=== PATIENT | male | born 1965 | race Caucasian/White ===

== ENCOUNTER 2020-06-27 04:46 | Emergency (ER) | payer BC, OTHER ==
[2020-06-27] MEDS ORDERED: TETANUS & DIPHTHERIA TOX,ADULT 0.5 ML VIAL ONE (05:25)
--- NOTE | 2020-06-27 06:09 | ER ---
Nurse's Notes [facility] Name: Elfego Elliott Age: 54 yrs Sex: Male : 1965 Arrival Date: 06/27/2020 Time: 04:49 Bed 8 Private MD: Diagnosis: Fall due to bumping against object;Pain in left shoulder;Alcohol abuse with intoxication;Contusion of left elbow;Acute maxillary sinusitis;Acute ethmoidal sinusitis Presentation: 06/27 04:52 Chief complaint: EMS states: he was at home , alcohol on board, tripped and fell on his mg2 left side. he sustained pain on his left shoulder and abrasions on the left elbow. denies neck or head injury. Coronavirus screen: Client denies travel out of the [place] in the last 14 days. At this time, the client does not indicate any symptoms associated with coronavirus-19. Ebola Screen: No symptoms or risks identified at this time. Initial Sepsis Screen: Does the patient meet any 2 criteria? No. Patient's initial sepsis screen is negative. Does the patient have a suspected source of infection? No. Patient's initial sepsis screen is negative. Risk Assessment: Do you want to hurt yourself or someone else? Patient reports no desire to harm self or others. Onset of symptoms was June 27, 2020. 04:52 Method Of Arrival: EMS: [facility] [place] 04:[place] Acuity: IRAM 4 mg2 - Family history:: not pertinent. Screenin:00 Abuse screen: Denies threats or abuse. Nutritional screening: No deficits noted. jb4 Tuberculosis screening: No symptoms or risk factors identified. Fall Risk None identified. Assessment: 05:00 General: Appears in no apparent distress. uncomfortable, Behavior is calm, cooperative, jb4 appropriate for age. Pain: Complains of pain in left shoulder Pain does not radiate. Pain currently is 5 out of 10 on a pain scale. Neuro: Level of Consciousness is awake, alert, obeys commands, Oriented to person, place, time, situation. Cardiovascular: Patient's skin is warm and dry. Respiratory: Airway is patent Respiratory effort is even, unlabored, Respiratory pattern is regular, symmetrical. GI: No signs and/or symptoms were reported involving the gastrointestinal system. : No signs and/or symptoms were reported regarding the genitourinary system. EENT: No signs and/or symptoms were reported regarding the EENT system. Derm: Skin is intact, Skin is pink, warm \T\ dry. Musculoskeletal: Circulation, motion, and sensation intact. Range of motion: intact in all extremities. 05:54 Reassessment: Patient appears in no apparent distress at this time. Patient and/or jb4 family updated on plan of care and expected duration. Pain level reassessed. Patient is alert, oriented x 3, equal unlabored respirations, skin warm/dry/pink. PT to Radiology. 06:30 Reassessment: Patient appears in no apparent distress at this time. Patient and/or jb4 family updated on plan of care and expected duration. Pain level reassessed. Patient is alert, oriented x 3, equal unlabored respirations, skin warm/dry/pink. Pt verbalized understanding of d/c and follow up instructions. Denies questions or concerns. Shown to lobby to wait for ride home. Vital Signs: 06:10 BP 131 / 92; Pulse 101; Resp 16; Pulse Ox 96% on R/A; jb4 ED Course: 04:49 Patient arrived in ED. femi 04:49 Jorge Alberto Restrepo MD is Attending Physician. femi 05:00 Fabiano Marti, RN is Primary Nurse. jb4 05:00 Patient has correct armband on for positive identification. Bed in low position. Call jb4 light in reach. Side rails up X 1. Pulse ox on. NIBP on. 05:01 Triage completed. mg2 05:01 Arm band placed on. mg2 06:01 CT Head C Spine In Process Unspecified. EDMS 06:09 Abilio Shannon MD is Referral Physician. femi 06:30 No provider procedures requiring assistance completed. IV discontinued, intact, jb4 bleeding controlled, No redness/swelling at site. Pressure dressing applied. 06:40 Chest Pa And Lat (2 Views) XRAY In Process Unspecified. EDMS 06:41 Elbow Left 3 View XRAY In Process Unspecified. EDMS 06:42 Shoulder Left (2 View) XRAY In Process Unspecified. EDMS Administered Medications: 05:25 Drug: Tetanus-Diphtheria Toxoid Adult 0.5 ml {Washing Machine Mechanic: SeeOn. Exp: jb4 11/23/2022. Lot #: [id number]. } Route: IM; Site: right deltoid; 06:00 Follow up: Response: No adverse reaction jb4 05:25 Drug: Neosporin Ointment 1 application Route: Topical; Site: wound; jb4 Outcome: 06:09 Discharge ordered by . femi 06:30 Discharged to home ambulatory. jb4 06:30 Condition: stable 06:30 Discharge instructions given to patient, Instructed on discharge instructions, follow up and referral plans. Demonstrated understanding of instructions, follow-up care, medications, Prescriptions given X 2. 06:31 Patient left the ED. jb4 Signatures: Dispatcher [employer] EDMS Jorge Alberto Restrepo MD MD cha Bryson, James, RN RN jb4 Dejuan Harrison RN RN mg2
--- NOTE | 2020-06-27 06:10 | EDPHYS ---
Physician Documentation [facility] Name: Elfego Elliott Age: 54 yrs Sex: Male : 1965 Arrival Date: 06/27/2020 Time: 04:49 Bed 8 Private MD: EMY Physician Jorge Alberto Restrepo HPI: 06/27 04:54 This 54 yrs old Male presents to ER via Unassigned with complaints of fall at [facility] home to shoulder. 04:54 The patient or guardian complains of decreased range of motion, an injury. left [facility] shoulder. Context: The problem was sustained at home, resulted from a fall. Onset: The symptoms/episode began/occurred just prior to arrival. Modifying factors: the symptoms are alleviated by remaining still, The symptoms are aggravated by movement. Associated signs and symptoms: The patient has no apparent associated signs or symptoms. The patient or guardian reports chest pain that is located primarily in the anterior chest wall, left lateral anterior chest and left lateral posterior chest. 05:01 The pain does not radiate. Associated signs and symptoms: The patient has no apparent [facility] associated signs or symptoms. The chest pain is described as aching. Modifying factors: The symptoms are alleviated by remaining still, the symptoms are aggravated by activity, deep breath, twisting torso. Severity of pain: At its worst the pain was mild moderate in the emergency department the pain is unchanged. Severity of symptoms: At their worst the symptoms were mild, in the emergency department the symptoms are unchanged. - Family history:: not pertinent. ROS: 04:54 Constitutional: Negative for fever, chills, and weight loss, Eyes: Negative for injury, femi pain, redness, and discharge, ENT: Negative for injury, pain, and discharge, Neck: Negative for injury, pain, and swelling, Cardiovascular: Negative for chest pain, palpitations, and edema, Respiratory: Negative for shortness of breath, cough, wheezing, and pleuritic chest pain, Abdomen/GI: Negative for abdominal pain, nausea, vomiting, diarrhea, and constipation, Back: Negative for injury and pain, : Negative for injury, bleeding, discharge, and swelling, Skin: Negative for injury, rash, and discoloration, Neuro: Negative for headache, weakness, numbness, tingling, and seizure, Psych: Negative for depression, anxiety, suicide ideation, homicidal ideation, and hallucinations, Allergy/Immunology: Negative for hives, rash, and allergies, Endocrine: Negative for neck swelling, polydipsia, polyuria, polyphagia, and marked weight changes. 04:54 MS/extremity: Positive for decreased range of motion, pain, swelling, tenderness, of the anterior aspect of left shoulder and posterior aspect of left shoulder. Exam: 04:54 Constitutional: This is a well developed, well nourished patient who is awake, alert, femi and in no acute distress. Head/Face: Normocephalic, atraumatic. Eyes: Pupils equal round and reactive to light, extra-ocular motions intact. Lids and lashes normal. Conjunctiva and sclera are non-icteric and not injected. Cornea within normal limits. Periorbital areas with no swelling, redness, or edema. ENT: Nares patent. No nasal discharge, no septal abnormalities noted. Tympanic membranes are normal and external auditory canals are clear. Oropharynx with no redness, swelling, or masses, exudates, or evidence of obstruction, uvula midline. Mucous membranes moist. Neck: Trachea midline, no thyromegaly or masses palpated, and no cervical lymphadenopathy. Supple, full range of motion without nuchal rigidity, or vertebral point tenderness. No Meningismus. Chest/axilla: Normal chest wall appearance and motion. Nontender with no deformity. No lesions are appreciated. Cardiovascular: Regular rate and rhythm with a normal S1 and S2. No gallops, murmurs, or rubs. Normal PMI, no JVD. No pulse deficits. Respiratory: Lungs have equal breath sounds bilaterally, clear to auscultation and percussion. No rales, rhonchi or wheezes noted. No increased work of breathing, no retractions or nasal flaring. Abdomen/GI: Soft, non-tender, with normal bowel sounds. No distension or tympany. No guarding or rebound. No evidence of tenderness throughout. Back: No spinal tenderness. No costovertebral tenderness. Full range of motion. Male : Normal genitalia with no discharge or lesions. Skin: Warm, dry with normal turgor. Normal color with no rashes, no lesions, and no evidence of cellulitis. Neuro: Awake and alert, GCS 15, oriented to person, place, time, and situation. Cranial nerves II-XII grossly intact. Motor strength 5/5 in all extremities. Sensory grossly intact. Cerebellar exam normal. Normal gait. Psych: Awake, alert, with orientation to person, place and time. Behavior, mood, and affect are within normal limits. 04:54 Musculoskeletal/extremity: Extremities: grossly normal except: noted in the anterior aspect of left shoulder and posterior aspect of left shoulder: decreased ROM, pain, ROM: full active range of motion, full passive range of motion, Circulation is intact in all extremities. Sensation intact. Compartment Syndrome exam of affected extremity: is normal. Joints: All joints are normal except pain at rest, painful range of motion. Vital Signs: 06:10 BP 131 / 92; Pulse 101; Resp 16; Pulse Ox 96% on R/A; jb4 MDM: 04:49 Patient medically screened. [facility] 04:57 Differential diagnosis: Anterior dislocation with fracture, Anterior dislocation femi without fracture, humeral head fracture, DJD. Data reviewed: vital signs, nurses notes, radiologic studies. Data interpreted: electronic device monitor: rate is 75 beats/min, rhythm is regular. Test interpretation: by ED physician or midlevel provider: plain radiologic studies. Counseling: I had a detailed discussion with the patient and/or guardian regarding: the historical points, exam findings, and any diagnostic results supporting the discharge/admit diagnosis, radiology results. 06/27 04:53 Order name: CT Head C Spine [facility] 06/27 04:53 Order name: Chest Pa And Lat (2 Views) XRAY [facility] 06/27 04:53 Order name: Elbow Left 3 View XRAY [facility] 06/27 04:53 Order name: Shoulder Left (2 View) XRAY [facility] 06/27 04:53 Order name: Ice pack; Complete Time: 05:25 [facility] 06/27 04:53 Order name: Wound Care; Complete Time: 05:25 [facility] Administered Medications: 05:25 Drug: Tetanus-Diphtheria Toxoid Adult 0.5 ml {Almond Cutting Machine Tender: Lánzanos. Exp: jb4 11/23/2022. Lot #: [id number]. } Route: IM; Site: right deltoid; 06:00 Follow up: Response: No adverse reaction [facility] 05:25 Drug: Neosporin Ointment 1 application Route: Topical; Site: wound; jb4 Disposition: 06/27/20 06:09 Discharged to Home. Impression: Fall due to bumping against object, Pain in left shoulder, Alcohol abuse with intoxication, Contusion of left elbow, Acute maxillary sinusitis, Acute ethmoidal sinusitis. - Condition is Stable. - Discharge Instructions: Alcohol Intoxication, Joint Pain, Musculoskeletal Pain, Shoulder Pain, Sinusitis, Adult, Elbow Contusion, Sinusitis, Adult, Sarm-jg-Ooqm, Shoulder Pain, Vruo-pg-Zqux, Alcohol Intoxication, Wghp-zm-Isqc, Alcohol Abuse and Nutrition, Fall Prevention in the Home, Cywh-qx-Bsbk, Elbow Contusion, Ztsu-go-Nuyo. - Prescriptions for Ibuprofen 600 mg Oral Tablet - take 1 tablet by ORAL route every 8 hours As needed take with food; 21 tablet. Bactrim DS 800- 160 mg Oral Tablet - take 1 tablet by ORAL route every 12 hours for 10 days; 20 tablet. - Medication Reconciliation Form, Thank You Letter, Antibiotic Education, Prescription Opioid Use form. - Follow up: Private Physician; When: 2 - 3 days; Reason: Recheck today's complaints, Continuance of care, Re-evaluation by your physician. Follow up: Dr. Abilio Shannon; When: 2 - 3 days; Reason: Recheck today's complaints, Re-evaluation by your physician. - Problem is new. - Symptoms have improved. Signatures: Dispatcher [employer] EDJorge Alberto Ag MD MD cha Bryson, James RN RN jb4 Corrections: (The following items were deleted from the chart) 06:25 06:09 06/27/2020 06:09 Discharged to Home. Impression: Fall due to bumping against femi object; Pain in left shoulder; Alcohol abuse with intoxication; Contusion of left elbow. Condition is Stable. Discharge Instructions: Alcohol Intoxication, Joint Pain, Musculoskeletal Pain, Shoulder Pain, Elbow Contusion, Shoulder Pain, Tzwt-ll-Myhb, Alcohol Intoxication, Fpuz-ki-Htzw, Alcohol Abuse and Nutrition, Fall Prevention in the Home, Ajwf-iv-Hrxs, Elbow Contusion, Mfye-ub-Pecw. Prescriptions for Ibuprofen 600 mg Oral Tablet - take 1 tablet by ORAL route every 8 hours As needed take with food; 21 tablet. and Forms are Medication Reconciliation Form, Thank You Letter, Antibiotic Education, Prescription Opioid Use. Follow up: Private Physician; When: 2 - 3 days; Reason: Recheck today's complaints, Continuance of care, Re-evaluation by your physician. Follow up: Dr. Abilio Shannon; When: 2 - 3 days; Reason: Recheck today's complaints, Re-evaluation by your physician. Problem is new. Symptoms have improved. [facility] 06:31 06:25 06/27/2020 06:09 Discharged to Home. Impression: Fall due to bumping against jb4 object; Pain in left shoulder; Alcohol abuse with intoxication; Contusion of left elbow; Acute maxillary sinusitis; Acute ethmoidal sinusitis. Condition is Stable. Discharge Instructions: Alcohol Intoxication, Joint Pain, Musculoskeletal Pain, Shoulder Pain, Elbow Contusion, Shoulder Pain, Wwxx-ts-Bqhd, Alcohol Intoxication, Ljup-hk-Yuew, Alcohol Abuse and Nutrition, Fall Prevention in the Home, Zlej-pd-Ihmz, Elbow Contusion, Ohat-bp-Oenp. Prescriptions for Ibuprofen 600 mg Oral Tablet - take 1 tablet by ORAL route every 8 hours As needed take with food; 21 tablet. and Forms are Medication Reconciliation Form, Thank You Letter, Antibiotic Education, Prescription Opioid Use. Follow up: Private Physician; When: 2 - 3 days; Reason: Recheck today's complaints, Continuance of care, Re-evaluation by your physician. Follow up: Dr. Abilio Shannon; When: 2 - 3 days; Reason: Recheck today's complaints, Re-evaluation by your physician. Problem is new. Symptoms have improved. [facility]
[2020-06-27 06:41] VITALS: BP 131/92; O2SAT 96
--- NOTE | 2020-06-27 08:44 | RAD REPORT ---
EXAM DESCRIPTION: RAD - Chest Pa And Lat (2 Views) - 06/27/2020 6:39 am CLINICAL HISTORY: TRAUMA, trip and fall, chest pain COMPARISON: None TECHNIQUE: Frontal and lateral views of the chest were obtained. FINDINGS: The lungs are clear. Lateral view has respiratory motion degradation. Heart size is vilma l and central vasculature is within normal limits. No pleural effusion or pneumothorax seen. No acu te bony finding noted. No aortic abnormality. IMPRESSION: No acute cardiopulmonary process.
--- NOTE | 2020-06-27 08:44 | RAD REPORT ---
EXAM DESCRIPTION: RAD - Shoulder Left 2 View - 06/27/2020 6:41 am CLINICAL HISTORY: PAIN, trip and fall, shoulder pain COMPARISON: No comparisons TECHNIQUE: Internal and external rotation views of the left shoulder were obtained. FINDINGS: There is no fracture or dislocation. AC joint is normal in appearance. No acute or suspici ous findings. IMPRESSION: Negative two-view left shoulder examination for acute findings.
--- NOTE | 2020-06-27 08:44 | RAD REPORT ---
EXAM DESCRIPTION: RAD - Elbow Left 3 View - 06/27/2020 6:41 am CLINICAL HISTORY: PAIN, trip and fall COMPARISON: None. FINDINGS: No fracture is identified and no elevated posterior fat pad. There is no dislocation or pe riosteal reaction noted. No foreign body or other soft tissue abnormality. IMPRESSION: Negative left elbow examination.
--- NOTE | 2020-06-27 10:24 | RAD REPORT ---
EXAM DESCRIPTION: CT - [id number] - 06/27/2020 6:33 am CLINICAL HISTORY: The patient is 54 years old and is Male; PAIN TECHNIQUE: Axial computed tomography images of the head/brain and cervical spine without intravenous contrast. Sagittal and coronal reformatted images were created and reviewed. This CT exam was pe rformed using one or more of the following dose reduction techniques: automated exposure control, a djustment of the mA and/or kV according to patient size, and/or use of iterative reconstruction techn ique. COMPARISON: No relevant prior studies available. FINDINGS: BRAIN: Unremarkable. No hemorrhage. No significant white matter disease. No edema. VENTRICLES: Unremarkable. No ventriculomegaly. SKULL: No acute fracture. SINUSES: Mucoperiosteal thickening of the ethmoid air cells and maxillary sinuses is present. Fl uid is present within the bilateral maxillary sinuses. A right sphenoid sinus mucus retention cyst is present. MASTOID AIR CELLS: Unremarkable as visualized. No mastoid effusion. 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 DISCS/SPINAL CANAL/NEURAL FORAMINA: Intervertebral disc space narrowing and osteophyte formation at C5-C6 and C6-C7 is present. Mild neural foraminal narrowing on the left at these levels is also n oted. SOFT TISSUES: The soft tissues are normal. LUNG APICES: Unremarkable as visualized. IMPRESSION: 1. No acute intracranial findings. 2. Maxillary and ethmoid sinus disease. Right sphenoid sinus mucus retention cyst. 3. Minimal degenerative change of the cervical spine without acute findings. 4. Left hemivertebra of C3. Electronically signed by: Gail Bridges MD 06/27/2020 6:12 AM CDT Due to temporary technical issues with the PACS/Fluency reporting system, reports are being signed by the in house radiologist without review as a courtesy to ensure prompt reporting. The interpreting r adiologist is fully responsible for the content of the report.
== END 2020-06-27 06:31 | disposition home or self-care (01) ==
LOC: ER 04:46
DX: S40.012A Contusion of left shoulder, initial encounter (principal); F10.129 Alcohol abuse with intoxication, unspecified; J01.00 Acute maxillary sinusitis, unspecified; J01.20 Acute ethmoidal sinusitis, unspecified; W18.00XA Striking against unspecified object with subsequent fall, initial encounter; Y93.9 Activity, unspecified; Y92.009 Unspecified place in unspecified non-institutional (private) residence as the place of occurrence of the external cause; Z23 Encounter for immunization
CPT/HCPCS: 70450; 71046; 72125; 90471; 90714; 99284